=== PATIENT | female | born 1995 | race Caucasian/White ===

== ENCOUNTER 2019-01-13 15:20 | Emergency (ER) | payer BC ==
[2019-01-13 15:56] VITALS: RESP 18
--- NOTE | 2019-01-13 16:21 | ED ---
General Adult HPI - General Chief complaint: Seizure Stated complaint: poss seizure Time Seen by Provider: 01/13/19 16:08 Source: patient Mode of arrival: ambulatory Limitations: no limitations - History of Present Illness Initial comments: Patient is 23-year-old female presents for chief complaint suspected seizure. He does not have a history of seizures. This happened at about noon today. The patient's boyfriend states that he was outside fixing his truck and was called into the house as the patient was somewhat unresponsive. Family witnessed any seizure activity however the patient's boyfriend does describe what is consistent with a postictal state. The patient did bite her tongue, she did not lose bowel or bladder continence. Since the episode, the patient has been feeling normal. The patient states that after about 2 minutes, the patient was walking around acting normal. - Related Data Allergies Allergy/AdvReac Type Severity Reaction Status Date / Time No Known Allergies Allergy Verified 01/13/19 15:56 Review of Systems ROS Statement: Those systems with pertinent positive or pertinent negative responses have been documented in the HPI. ROS Other: All systems not noted in ROS Statement are negative. Neurological: Reports: headache Past Medical History Past Medical History: No Reported History History of Any Multi-Drug Resistant Organisms: None Reported Past Surgical History: No Surgical Hx Reported Past Psychological History: No Psychological Hx Reported Smoking Status: Never smoker Past Alcohol Use History: None Reported Past Drug Use History: None Reported General Exam Limitations: no limitations General appearance: alert, in no apparent distress Head exam: Present: atraumatic, normocephalic Eye exam: Present: normal appearance, PERRL, EOMI. Absent: nystagmus ENT exam: Present: normal exam, mucous membranes moist Neck exam: Present: normal inspection Respiratory exam: Present: normal lung sounds bilaterally. Absent: respiratory distress, wheezes Cardiovascular Exam: Present: regular rate, normal rhythm GI/Abdominal exam: Present: soft. Absent: distended, tenderness Rectal exam: Present: deferred Extremities exam: Present: normal inspection Back exam: Present: normal inspection Neurological exam: Present: alert, oriented X3, CN II-XII intact, normal gait. Absent: motor sensory deficit Psychiatric exam: Present: normal affect, normal mood Skin exam: Present: warm, dry, intact Course Vital Signs 01/13/19 15:52 Temperature 98.7 F Pulse Rate 74 Respiratory 18 Rate Blood Pressure 134/87 O2 Sat by Pulse 99 Oximetry Medical Decision Making - Medical Decision Making Patient presents with a chief complaint of a suspected seizure. On initial evaluation, vital signs are stable, patient is in no acute distress. She is daily awake and alert, neurovascularly intact. Able to ambulate without assistance, Romberg negative. Patient to be evaluated with basic labs including urinalysis, UDS, serum test, and computed tomography scan of the head without contrast. 5:51 PM Lab Evaluation this patient is unremarkable. HCG is negative. Computed tomogr aphy scan of the head shows no acute intracranial hemorrhage, mass effect or midline shift. I reviewed the results with the patient and her family, this time she is to her discharge. The patient will be referred to primary care and neurology, instructed to follow-up in 1-2 days, return to ED if symptoms worsen or change. - Lab Data Result diagrams: 01/13/19 16:30 01/13/19 16:30 Lab Results 01/13/19 01/13/19 01/13/19 Range/Units 16:30 16:30 16:30 WBC 9.4 (3.8-10.6) k/uL RBC 4.98 (3.80-5.40) m/uL Hgb 13.6 (11.4-16.0) gm/dL Hct 42.0 (34.0-46.0) % MCV 84.4 (80.0-100.0) fL MCH 27.3 (25.0-35.0) pg MCHC 32.4 (31.0-37.0) g/dL RDW 12.6 (11.5-15.5) % Plt Count 354 (150-450) k/uL Neutrophils % 67 % Lymphocytes % 24 % Monocytes % 5 % Eosinophils % 1 % Basophils % 0 % Neutrophils # 6.3 (1.3-7.7) k/uL Lymphocytes # 2.3 (1.0-4.8) k/uL Monocytes # 0.5 (0-1.0) k/uL Eosinophils # 0.1 (0-0.7) k/uL Basophils # 0.0 (0-0.2) k/uL Sodium 140 (137-145) mmol/L Potassium 4.1 (3.5-5.1) mmol/L Chloride 108 H (98-107) mmol/L Carbon Dioxide 25 (22-30) mmol/L Anion Gap 7 mmol/L BUN 13 (7-17) mg/dL Creatinine 0.53 (0.52-1.04) mg/dL Est GFR (CKD-EPI)AfAm >90 (>60 ml/min/1.73 sqM) Est GFR (CKD-EPI)NonAf >90 (>60 ml/min/1.73 sqM) Glucose 98 (74-99) mg/dL Plasma Lactic Acid Raymond 0.9 (0.7-2.0) mmol/L Calcium 9.6 (8.4-10.2) mg/dL HCG, Qual Not Detected Urine Color Urine Appearance (Clear) Urine pH (5.0-8.0) Ur Specific [place] (1.001-1.035) Urine Protein (Negative) Urine Glucose (UA) (Negative) Urine Ketones (Negative) Urine Blood (Negative) Urine Nitrite (Negative) Urine Bilirubin (Negative) Urine Urobilinogen (<2.0) mg/dL Ur Leukocyte Esterase (Negative) Urine RBC (0-5) /hpf Urine WBC (0-5) /hpf Ur Squamous Epith Cells (0-4) /hpf Urine Bacteria (None) /hpf Urine Mucus (None) /hpf Urine Opiates Screen (NotDetected) Ur Oxycodone Screen (NotDetected) Urine Methadone Screen (NotDetected) Ur Propoxyphene Screen (NotDetected) Ur Barbiturates Screen (NotDetected) U Tricyclic Antidepress (NotDetected) Ur Phencyclidine Scrn (NotDetected) Ur Amphetamines Screen (NotDetected) U Methamphetamines Scrn (NotDetected) U Benzodiazepines Scrn (NotDetected) Urine Cocaine Screen (NotDetected) U Marijuana (THC) Screen (NotDetected) 01/13/19 Range/Units 17:20 WBC (3.8-10.6) k/uL RBC (3.80-5.40) m/uL Hgb (11.4-16.0) gm/dL Hct (34.0-46.0) % MCV (80.0-100.0) fL MCH (25.0-35.0) pg MCHC (31.0-37.0) g/dL RDW (11.5-15.5) % Plt Count (150-450) k/uL Neutrophils % % Lymphocytes % % Monocytes % % Eosinophils % % Basophils % % Neutrophils # (1.3-7.7) k/uL Lymphocytes # (1.0-4.8) k/uL Monocytes # (0-1.0) k/uL Eosinophils # (0-0.7) k/uL Basophils # (0-0.2) k/uL Sodium (137-145) mmol/L Potassium (3.5-5.1) mmol/L Chloride (98-107) mmol/L Carbon Dioxide (22-30) mmol/L Anion Gap mmol/L BUN (7-17) mg/dL Creatinine (0.52-1.04) mg/dL Est GFR (CKD-EPI)AfAm (>60 ml/min/1.73 sqM) Est GFR (CKD-EPI)NonAf (>60 ml/min/1.73 sqM) Glucose (74-99) mg/dL Plasma Lactic Acid Raymond (0.7-2.0) mmol/L Calcium (8.4-10.2) mg/dL HCG, Qual Urine Color Yellow Urine Appearance Clear (Clear) Urine pH 6.5 (5.0-8.0) Ur Specific [place] 1.015 (1.001-1.035) Urine Protein Negative (Negative) Urine Glucose (UA) Negative (Negative) Urine Ketones Negative (Negative) Urine Blood Small H (Negative) Urine Nitrite Negative (Negative) Urine Bilirubin Negative (Negative) Urine Urobilinogen <2.0 (<2.0) mg/dL Ur Leukocyte Esterase Negative (Negative) Urine RBC 3 (0-5) /hpf Urine WBC 2 (0-5) /hpf Ur Squamous Epith Cells 3 (0-4) /hpf Urine Bacteria Rare H (None) /hpf Urine Mucus Rare H (None) /hpf Urine Opiates Screen Not Detected (NotDetected) Ur Oxycodone Screen Not Detected (NotDetected) Urine Methadone Screen Not Detected (NotDetected) Ur Propoxyphene Screen Not Detected (NotDetected) Ur Barbiturates Screen Not Detected (NotDetected) U Tricyclic Antidepress Not Detected (NotDetected) Ur Phencyclidine Scrn Not Detected (NotDetected) Ur Amphetamines Screen Not Detected (NotDetected) U Methamphetamines Scrn Not Detected (NotDetected) U Benzodiazepines Scrn Not Detected (NotDetected) Urine Cocaine Screen Not Detected (NotDetected) U Marijuana (THC) Screen Not Detected (NotDetected) Disposition Clinical Impression: Transient alteration of awareness Disposition: HOME SELF-CARE Condition: Good Instructions (If sedation given, give patient instructions): New-Onset Seizure in Adults (ED) Is patient prescribed a controlled substance at d/c from ED?: No Referrals: None,Stated [Primary Care Provider] - 1-2 days Abida Sage MD [STAFF PHYSICIAN] - 1-2 days Jean-Claude Pace MD [Medical Doctor] - 1-2 days Laura Fong MD [STAFF PHYSICIAN] - 1-2 days
[2019-01-13 16:54] LABS: Basophils % (A) 0 %; Eosinophils # (A) 0.1 k/uL (0-0.7); Eosinophils % (A) 1 %; HGB 13.6 gm/dL (11.4-16.0); Lymphocytes # (A) 2.3 k/uL (1.0-4.8); Lymphocytes % (A) 24 %; MCH 27.3 pg (25.0-35.0); MCHC 32.4 g/dL (31.0-37.0); MCV 84.4 fL (80.0-100.0); Mean Platelet Volume 6.6; Monocytes # (A) 0.5 k/uL (0-1.0); Monocytes % (A) 5 %; Neutrophils # (A) 6.3 k/uL (1.3-7.7); Neutrophils % (A) 67 %; Platelet Count 354 k/uL (150-450); RBC 4.98 m/uL (3.80-5.40); RDW 12.6 % (11.5-15.5); WBC 9.4 k/uL (3.8-10.6)
[2019-01-13 17:02] LABS: HCG,Qualitative Serum Not Detected
[2019-01-13 17:09] LABS: Anion Gap 7 mmol/L; Blood Urea Nitrogen 13 mg/dL (7-17); Calcium 9.6 mg/dL (8.4-10.2); Carbon Dioxide 25 mmol/L (22-30); Chloride 108 mmol/L (98-107); Glucose 98 mg/dL (74-99); Potassium 4.1 mmol/L (3.5-5.1); Sodium 140 mmol/L (137-145)
--- NOTE | 2019-01-13 17:09 | CT ---
EXAMINATION TYPE: CT brain wo con DATE OF EXAM: 01/13/2019 COMPARISON: None. HISTORY: 23-year-old female with seizure CT DLP: 1099.4 mGycm. Automated Exposure Control for Dose Reduction was Utilized. TECHNIQUE: CT scan of the head is performed without contrast. FINDINGS: There is no acute intracranial hemorrhage, mass effect, or midline shift identified. The ventricles and sulci are within normal limits in size. The globes are intact and the visualized sin uses are clear. IMPRESSION: No acute intracranial hemorrhage, mass effect, or midline shift is seen.
[2019-01-13 17:36] LABS: Appearance,Urine Clear (Clear); Bacteria,Urine Rare /hpf; Bilirubin,Urine Negative (Negative); Blood,Urine Small (Negative); Color,Urine Yellow; Glucose,Urine (UA) Negative (Negative); Ketones,Urine Negative (Negative); Leukocyte Esterase,Urine Negative (Negative); Mucus,Urine Rare /hpf; Nitrite,Urine Negative (Negative); PH, Urine 6.5 (5.0-8.0); Protein,Urine Negative (Negative); RBC,Urine 3 /hpf (0-5); Specific Gravity,Urine 1.015 (1.001-1.035); Squamous Epithelial Cell,Urine 3 /hpf (0-4); Urobilinogen,Urine <2.0 mg/dL (<2.0); WBC,Urine 2 /hpf (0-5)
[2019-01-13 17:43] LABS: Amphetamine Screen,Urine Not Detected (NotDetected); Barbiturate Screen,Urine Not Detected (NotDetected); Benzodiazepines Screen,Urine Not Detected (NotDetected); Cocaine Screen,Urine Not Detected (NotDetected); Methadone Screen, Urine Not Detected (NotDetected); Opiate Screen,Urine Not Detected (NotDetected); Oxycodone Screen, Urine Not Detected (NotDetected); Phencyclidine Screen,Urine Not Detected (NotDetected); Tricyclic Antidepressant,Urine Not Detected (NotDetected); Urn Cannabinoid Scrn Not Detected (NotDetected)
[2019-01-13 18:16] VITALS: BP 124/87; PULSE 66; TEMP 98.1
== END 2019-01-13 18:16 | disposition home or self-care (01) ==
LOC: EC 15:20
DX: R40.4 Transient alteration of awareness (principal)
CPT/HCPCS: 36415; 70450; 80048; 80306; 81001; 83605; 84703; 85025; 99285

== ENCOUNTER 2024-09-18 06:03 | Inpatient (IN) | payer BC, OTHER ==
[2024-09-18] MEDS ORDERED: OXYTOCIN 10 UNIT/ML 1 ML VIAL IM PRN (06:20)
[2024-09-18] MEDS ORDERED: TRANEXAMIC 1,000 MG/100ML-NACL 1,000 MG in EMPTY BAG 1 BAG IV PRN (06:20)
[2024-09-18] MEDS ORDERED: METHYLERGONOVINE 0.2 MG/ML 1 ML AMP IM PRN (06:20)
[2024-09-18] MEDS ORDERED: LIDOCAINE 0.5% (PF) 5 MG/ML (50 ML SDV) SQ PRN (06:20)
[2024-09-18] MEDS ORDERED: miSOPROStoL 200 MCG TAB RECTAL PRN (06:20)
[2024-09-18] MEDS ORDERED: CARBOPROST TROMETHAMINE 250 MCG/ML 1 ML AMP IM PRN (06:20)
[2024-09-18] MEDS ORDERED: miSOPROStoL 200 MCG TAB PO PRN (06:20)
[2024-09-18] MEDS ORDERED: TERBUTALINE 1 MG/ML VIAL SQ PRN (06:20)
[2024-09-18 06:25] LABS: Glucose,Whole Blood 113 mg/dL (70-110)
[2024-09-18] MEDS: LACTATED RINGERS 1,000 ML BAG IV STA (06:35)
[2024-09-18] MEDS: OXYTOCIN 30 UNITS/500 ML NS 30 UNIT in SALINE 1 500ML.BAG IV SCH (06:58)
[2024-09-18 07:09] LABS: Basophils % (A) 0 %; Eosinophils # (A) 0.1 k/uL (0-0.7); Eosinophils % (A) 1 %; HCT 40.3 % (34.0-46.0); HGB 13.7 gm/dL (11.4-16.0); Lymphocytes # (A) 2.5 k/uL (1.0-4.8); Lymphocytes % (A) 24 %; MCH 29.8 pg (25.0-35.0); MCHC 34.1 g/dL (31.0-37.0); MCV 87.3 fL (80.0-100.0); Mean Platelet Volume 7.8; Monocytes # (A) 0.7 k/uL (0-1.0); Monocytes % (A) 7 %; Neutrophils # (A) 7.1 k/uL (1.3-7.7); Neutrophils % (A) 67 %; Platelet Count 251 k/uL (150-450); RBC 4.62 m/uL (3.80-5.40); RDW 12.8 % (11.5-15.5); WBC 10.5 k/uL (3.8-10.6)
--- NOTE | 2024-09-18 08:49 | P.HPOB ---
History of Present Illness H&P Date: 09/18/24 Chief Complaint: 39+ weeks, induction Patient is a 29-year-old 1 para 0 admitted at 39+ weeks as established by 6-week ultrasound. She is admitted for induction of labor secondary to gestational diabetes with a favorable cervix. She was somewhat late to care and was found to have gestational diabetes in the second trimester. Blood sugars were reportedly normal throughout the and she had reassuring testing on a weekly basis after 32 weeks. On labor delivery, all signs are reassuring with a category 1 heart rate tracing with intermittent flat heart tones, category 2, which resolve. Group B strep status is negative. Obstetrical history: 1 para 0 with current statistics listed in history of present illness. EDC of 09/22/2024 was established by 6-week ultrasound. Laboratory workup demonstrates a blood type of O+ with a negative antibody screen. Rubella status is nonimmune. The remainder of the laboratory workup was within normal limits. Early Glucola was elevated and a followed by an abnormal 3-hour glucose tolerance test making the diagnosis of gestational diabetes. Group B strep status is negative. Gynecologic history: Unremarkable with no history of any infections to include STDs. Review of Systems Review of systems is confined to history of present illness. Past Medical History Past Medical History: No Reported History History of Any Multi-Drug Resistant Organisms: None Reported Past Surgical History: No Surgical Hx Reported Additional Past Surgical History / Comment(s): Benign brain tumor removal 2019 Past Anesthesia/Blood Transfusion Reactions: No Reported Reaction Past Psychological History: No Psychological Hx Reported Smoking Status: Never smoker Past Alcohol Use History: None Reported Past Drug Use History: None Reported Medications and Allergies Allergies Allergy/AdvReac Type Severity Reaction Status Date / Time acetaminophen [From [place]] AdvReac Nausea & Verified 09/18/24 06:20 Vomiting hydrocodone [From [place]] AdvReac Nausea & Verified 09/18/24 06:20 Vomiting Exam Intake and Output 09/17/24 09/18/24 09/18/24 22:59 06:59 14:59 Other: Weight 141.067 kg General, this is a well-developed, morbidly obese white female in no acute distress. Her heart has a regular rhythm and rate without murmur. Her lungs are clear to auscultation bilateral in all cortes. Her abdomen is obese, gravid, nondistended, has normal active bowel sounds, soft, nontender, and without any palpable masses aside from the uterine fundus. Her extremities are without any cyanosis, clubbing, or edema and are nontender to palpation bilaterally. Digital cervical examination demonstrates her cervix to be 2 cm dilated, 70% effaced, the vertex and presentation at -2 station. Artificial rupture of membranes is carried out demonstrating clear fluid and a scalp electrode is applied for more consistent monitoring. Results Result Diagrams: 09/18/24 06:30 Abnormal Lab Results - Last 24 Hours (Table) 09/18/24 Range/Units 06:24 POC Glucose (mg/dL) 113 H (70-110) mg/dL Assessment and Plan (1) Gestational diabetes Current Visit: Yes Status: Acute Code(s): O24.419 - GESTATIONAL DIABETES MELLITUS IN , UNSP CONTROL SNOMED Code(s): 14486236 (2) Term Current Visit: Yes Status: Acute Code(s): Z34.90 - ENCNTR FOR SUPRVSN OF NORMAL , UNSP, UNSP TRIMESTER SNOMED Code(s): 84476900 Plan: Has been admitted for Pitocin induction which has been started. She has undergone artificial rupture of membranes. She will have close maternal and surveillance and expectant management will be practiced. She is a good candidate for either IV or epidural analgesia, which ever she may choose.
[2024-09-18 09:50] LABS: Creatinine,Urine Random 123.5 mg/dL; Protein/Creatinine Ratio,Urine 0.138
[2024-09-18 10:02] LABS: ALT 15 U/L (4-34); AST 20 U/L (14-36); African American GFR (CKD) >90 (>60 ml/min/1.73 sqM); Blood Urea Nitrogen 9 mg/dL (7-17); LDH 205 U/L (120-246); Non-African American GFR(CKD) >90 (>60 ml/min/1.73 sqM); Uric Acid 5.2 mg/dL (3.7-7.4)
[2024-09-18] MEDS: LACTATED RINGERS 500 ML IV SCH (10:40)
[2024-09-18] MEDS: BUTORPHANOL 1 MG/ML 1 ML VIAL IV PRN (12:17)
[2024-09-18] MEDS ORDERED: SODIUM CHLORIDE 0.9% 250 ML BAG ONE (15:35)
[2024-09-18] MEDS ORDERED: fentaNYL (PF) 50 MCG/ML 5 ML AMP ONE (15:35)
[2024-09-18] MEDS ORDERED: ROPIVACAINE 5 MG/ML 30 ML VIAL ONE (15:35)
[2024-09-18] MEDS: ceFAZolin 3 GM in SODIUM CHLORIDE 0.9% 100 ML IVPB ONE (22:24)
[2024-09-18] MEDS: CITRIC ACID-SODIUM CITRATE 15 ML CUP PO ONE (22:25)
[2024-09-18] MEDS ORDERED: GLYCOPYRROLATE 0.2 MG/ML 2 ML VIAL ONE (22:40)
[2024-09-18] MEDS ORDERED: MORPHINE SULFATE (PF) 0.3 MG/0.3 ML SYR ONE (22:40)
[2024-09-18] MEDS ORDERED: ONDANSETRON 4 MG/2 ML VIAL ONE (22:40)
[2024-09-18] MEDS ORDERED: KETOROLAC 15 MG/ML 1 ML VIAL ONE (22:40)
[2024-09-18] MEDS ORDERED: fentaNYL (PF) 50 MCG/ML 2 ML AMP ONE (22:40)
[2024-09-18] MEDS ORDERED: PROPOFOL 10 MG/ML 20 ML VIAL IV ONE (22:40)
[2024-09-18] MEDS ORDERED: NEOSTIGMINE 1 MG/ML 10 ML VIAL ONE (22:40)
[2024-09-18] MEDS ORDERED: WATER FOR INJECTION, STERILE 10 ML VIAL IV ONE (22:40)
[2024-09-18] MEDS ORDERED: LIDOCAINE 2%-EPI 1:100,000 20 ML VIAL ONE (22:40)
[2024-09-18] MEDS ORDERED: SUCCINYLCHOLINE CHLORIDE 200 MG/10 ML VIAL IV ONE (22:40)
[2024-09-18] MEDS ORDERED: OXYTOCIN 30 UNITS/500 ML NS BAG IV ONE (22:40)
[2024-09-18] MEDS ORDERED: OXYTOCIN 30 UNITS/500 ML NS 30 UNIT in SALINE 1 500ML.BAG IV SCH (23:45)
[2024-09-18] MEDS ORDERED: diphenhydrAMINE 25 MG CAP PO PRN (23:46)
[2024-09-18] MEDS ORDERED: SIMETHICONE 80 MG CHEWABLE PO PRN (23:46)
[2024-09-18] MEDS ORDERED: LANOLIN CREAM 1 GM TUBE TOPICAL PRN (23:46)
[2024-09-18] MEDS ORDERED: diphenhydrAMINE 50 MG CAP PO PRN (23:46)
[2024-09-18] MEDS ORDERED: ZOLPIDEM 5 MG TAB PO PRN (23:46)
[2024-09-18] MEDS ORDERED: ONDANSETRON 4 MG/2 ML VIAL IVP PRN (23:46)
[2024-09-18] MEDS ORDERED: diphenhydrAMINE 50 MG/ML 1 ML VIAL IVP PRN ×2 (23:46)
[2024-09-18] MEDS ORDERED: METOCLOPRAMIDE 5 MG/ML 2 ML VIAL IVP PRN (23:46)
[2024-09-18] MEDS ORDERED: NALOXONE 0.4 MG/ML 1 ML VIAL IV PRN (23:46)
--- NOTE | 2024-09-18 23:54 | P.OP ---
Date of Procedure: 09/18/24 Preoperative Diagnosis: #1. 39 and 1 sevenths weeks, induction #2. Gestational diabetes #3. Arrest of dilation and descent Postoperative Diagnosis: Same Procedure(s) Performed: #1. Primary low-transverse section Anesthesia: GETA, epidural (Failed) Surgeon: Doug Hendricks Religion Teacher #1: Celeste Vidales Estimated Blood Loss (ml): 900 IV fluids (ml): 1,000 Urine output (ml): 500 Pathology: none sent Condition: stable Disposition: floor Operative Findings: Preoperatively and while in labor, the patient had reached dilation of 6 cm without a percent effacement and continued to have an adequate contraction pattern with Pitocin augmentation. She remained at the same dilation for greater than 6 hours with no change in either dilation or descent making the diagnosis of arrest of dilation and descent. She was counseled regarding options and agreed to proceed to the operating room. She was taken to the operating room where she was delivered of a viable 9 pound 5 ounce baby girl with Apgars of 9 at 1 minute and 9 at 5 minutes in the occiput transverse position with asynclitism noted. The placenta was delivered manually, intact, and grossly normal with a grossly normal three-vessel cord. The uterus, tubes, and ovaries were entirely normal to inspection though the ovaries were consistent with a diagnosis of polycystic ovarian syndrome. Description of Procedure: The patient was prepped and draped in usual fashion after epidural anesthesia was bolused by the anesthesiologist. Repeated attempts to ascertain and adequate level of anesthesia failed and the decision was made to proceed with general endotracheal anesthesia. After placing the endotracheal T-tube and initiating general anesthesia, a Pfannenstiel incision was made and extended into the abdominal cavity without difficulty. The bladder peritoneum was significantly distal to the intended site of incision was left intact. A 2 cm incision was made in the transverse plane of the lower uterine segment to enter the uterus at which time clear to lightly meconium stained fluid was present. The incision was extended both directions using the bandage scissors. The head was delivered up and through the incision and the remainder of the delivered onto the field where the cord was immediately clamped, cut, and the infant passed for resuscitative measures with weight and Apgars as noted above. A segment of cord was doubly clamped, cut, and set aside should cord gases become necessary. The placenta was delivered manually and intact as noted above. The uterus was exteriorized and the anterior cavity of the uterus swept many remaining placental or membranous fragments. The margins of the uterine incision were grasped with López clamps and the incision closed in 2 layers. The first layer was a running locking stitch of 0 chromic catgut followed by a running imbricating stitch of 0 chromic catgut, both from margin to margin. The posterior cul-de-sac was suctioned using a guard and then followed by a laparotomy sponge. The uterine and ovarian findings are were normal as noted above. The uterus was replaced within the abdominal cavity and the incision reexamined. There was a point of bleeding at the left angle which was made hemostatic with a single tlavvm-el-vybhm stitch of 0 chromic catgut. After ensuring hemostasis within the abdomen, the parietal peritoneum was loosely reapproximated and the layer of muscles examined and found to be hemostatic. The fascia was closed with 2 running stitches of 0 Vicryl proceeding from the lateral margins to the midpoint. The subcutaneous tissues were examined and made hemostatic with the Bovie. They were then closed with a running stitch of 3-0 plain catgut. The skin was reapproximated with a running subcuticular stitch of 4-0 Vicryl followed by half-inch Steri-Strips placed with Mastisol. Estimated blood loss for the case was approximately 900 mL. There were no complications. All sponge, instrument, and needle counts were correct. The patient tolerated the procedure well and proceeded to the recovery room in stable condition. Both mother and are resting comfortably in recovery.
[2024-09-19] MEDS: ACETAMINOPHEN TAB 500 MG TAB PO SCH (04:02)
[2024-09-19 06:29] LABS: Basophils % (A) 0 %; Eosinophils % (A) 0 %; HCT 31.5 % (34.0-46.0); HGB 10.8 gm/dL (11.4-16.0); Lymphocytes # (A) 1.9 k/uL (1.0-4.8); Lymphocytes % (A) 15 %; MCHC 34.2 g/dL (31.0-37.0); MCV 87.7 fL (80.0-100.0); Mean Platelet Volume 7.5; Monocytes # (A) 0.9 k/uL (0-1.0); Monocytes % (A) 7 %; Neutrophils # (A) 9.7 k/uL (1.3-7.7); Neutrophils % (A) 76 %; Platelet Count 207 k/uL (150-450); RBC 3.59 m/uL (3.80-5.40); RDW 12.8 % (11.5-15.5); WBC 12.7 k/uL (3.8-10.6)
[2024-09-19] MEDS: SENNOSIDES-DOCUSATE SODIUM 1 EACH TAB PO SCH (07:51)
[2024-09-19] MEDS: KETOROLAC 15 MG/ML 1 ML VIAL IVP PRN (07:51)
--- NOTE | 2024-09-19 11:01 | P.PNOBGPC ---
Subjective - Subjective Patient reports: Reports appetite normal, Reports voiding normally, Reports pain well controlled, Reports ambulating normally Godfrey: doing well Objective - Vital Signs Latest vital signs: Vital Signs Temp Pulse Resp BP Pulse Ox 09/19/24 08:00 97.9 F 80 18 142/85 09/19/24 04:00 98.4 F 74 16 122/81 97 09/19/24 01:48 98.4 F 65 16 141/73 100 09/19/24 01:33 67 16 136/77 99 09/19/24 01:18 72 16 136/74 97 09/19/24 01:03 65 16 141/70 98 09/19/24 00:48 79 16 149/75 98 09/19/24 00:33 65 16 139/77 96 09/19/24 00:18 77 16 151/81 99 09/19/24 00:03 61 16 153/80 100 09/18/24 23:48 98.5 F 65 16 156/83 100 Intake and Output 09/18/24 09/19/24 09/19/24 22:59 06:59 14:59 Intake Total 600 634.1 Output Total 2970 600 Balance 600 -2335.9 -600 Intake: Intake, IV Titration 34.1 Amount Oxytocin 30 Units/500 ml 34.1 Ns 30 unit In Saline 1 500ml.bag @ Per Protocol IV .Q0M [facility] Rx#:[id number] Oral 600 600 Output: Urine 600 600 Uretheral (Bender) 600 Output, Estimated Blood 900 Loss Amount Output, Quantitative 1470 Blood Loss Other: Voiding Method Indwelling Catheter - Exam Extremities: Present: normal Abdomen: Present: normal appearance, soft. Absent: distention, tenderness Incision: Present: normal, dry, intact Uterus: Present: normal, firm (Uterine fundus is tonic and appropriately tender below the umbilicus.) - Labs Labs: Abnormal Lab Results - Last 24 Hours (Table) 09/19/24 Range/Units 06:07 WBC 12.7 H (3.8-10.6) k/uL RBC 3.59 L (3.80-5.40) m/uL Hgb 10.8 L (11.4-16.0) gm/dL Hct 31.5 L (34.0-46.0) % Neutrophils # 9.7 H (1.3-7.7) k/uL Assessment and Plan (1) Gestational diabetes Current Visit: Yes Status: Acute Code(s): O24.419 - GESTATIONAL DIABETES MELLITUS IN , UNSP CONTROL SNOMED Code(s): 37898822 (2) Term Current Visit: Yes Status: Acute Code(s): Z34.90 - ENCNTR FOR SUPRVSN OF NORMAL , UNSP, UNSP TRIMESTER SNOMED Code(s): 83186527 (3) S/P section Current Visit: Yes Status: Acute Code(s): Z98.891 - HISTORY OF UTERINE SCAR FROM PREVIOUS SURGERY SNOMED Code(s): 923654674 Plan: Continue routine and postoperative care. I have encouraged the patient ambulate in the hallways routinely. I would anticipate discharge home tomorrow pending no complications.
--- NOTE | 2024-09-19 11:26 | P.PN ---
Progress Note - Text Progress Note Date: 09/19/24 (0646) Anesthesia Postop day 1 Subjective: Status Post section with Duramorph. Patient seen and examined. Doing well without complaint. VAS 2 out of 10. No nausea vomiting or pruritus. Denies fever. Gross lower extremity strength intact. Without apparent anesthetic complications. Objective: Vital signs reviewed Heart: Regular Rate Lungs: Good chest excursion Abdomen: Appears nondistended Assessment: Status post section with Duramorph postop day 1 Plan: 1. Continue current care with your medical management. Anticipated end to the duration of the Duramorph around surgery time today. You may see increased pain needs around this time. 2. This note was dictated using [employer] software. Please be advised there is a potential for misspellings or errors in mend worker.
[2024-09-19] MEDS: IBUPROFEN 800 MG TAB PO SCH (16:22)
[2024-09-19 20:38] VITALS: RESP 16
[2024-09-20] MEDS: MEASLES-MUMPS-RUBELLA VACC/PF 12,500 UNIT/0.5 ML VIAL SQ ONE (05:31)
--- NOTE | 2024-09-20 09:25 | P.DS ---
Providers Date of admission: 09/18/24 06:03 Expected date of discharge: 09/20/24 Attending physician: Doug Hendricks Primary care physician: Evy Apple - Discharge Diagnosis(es) (1) Gestational diabetes Current Visit: Yes Status: Acute (2) Term Current Visit: Yes Status: Acute (3) S/P section Current Visit: Yes Status: Acute Hospital Course: The patient is a 29-year-old 1 para 0 admitted at 39+ weeks by good dating parameters. She is admitted for induction of labor secondary to gestational diabetes with a favorable cervix. She was somewhat late with to care and did develop gestational diabetes during and had reassuring testing weekly thereafter. On labor delivery, all signs were reassuring with a category 1 heart rate tracing. She had Pitocin started followed by artificial rupture of membranes for clear fluid. She made progress into the active phase of labor and had an epidural catheter placed for analgesia. She made progress ultimately to about 6 cm of dilation and remained there for more than 6 hours with adequate contractions. She was counseled and taken to the operating room where she underwent a primary low-transverse section without complications and delivered a viable 9 pound 5 ounce baby girl with Apgars of 9 at 1 minute and 9 at 5 minutes. Her and postoperative care was unremarkable with vital signs remaining stable and her temperature was afebrile throughout. She was deemed stable for discharge on and postoperative day #2. She was discharged home to follow-up in the office in 2 weeks for an incision check in 6 weeks routinely. Discharge instructions included calling for any significantly increased bleeding or foul- smelling lochia, significantly increased fever abdominal pain, perineal complaints, breast complaints, incisional complaints, or anything else that concerned her. She was additionally instructed to have nothing in the vagina for at least 6 weeks time to include intercourse and to abstain from any heavy lifting over the same period of time. She was lastly instructed to do no driving until off of all pain medications or 2 weeks time, whichever came first. She understood her instructions and agrees to follow-up as noted above. Discharge medications included continued vitamins as she is attempting to breast-feed. She was additionally to use [id number] analgesic pain medications as needed. She was provided a prescription fo oxycodone 5 mg, 1-2 p.o. every 6 hours as needed pain, #20 dispensed with no refills. Maternal blood type is A- and cord blood was sent for the evaluation of RhoGAM prior to discharge. Rubella status is nonimmune. She was to receive the MMR vaccination prior to discharge. Discharge hemoglobin and hematocrit were 10.8 and 31.5 respectively. Procedures: 3 Pitocin induction #2. Artificial rupture of membranes #3. Epidural analgesia #4. Primary low-transverse section Patient Condition at Discharge: Stable Plan - Discharge Summary Follow up Appointment(s)/Referral(s): Doug Hendricks MD [STAFF PHYSICIAN] - 10/29/24 11:15 am Discharge Disposition: HOME SELF-CARE
[2024-09-20 16:51] VITALS: BP 130/84; PULSE 78; TEMP 98.2
== END 2024-09-20 18:00 | disposition home or self-care (01) | DRG 788 ==
LOC: 4FBP 06:03
PROVIDERS: ADMIT Obstetrics & Gynecology; ATTEND Obstetrics & Gynecology
PROC: 3E033VJ Introduction of Other Hormone into Peripheral Vein, Percutaneous Approach (ICD-10-PCS; 2024-09-18)
PROC: 10907ZC Drainage of Amniotic Fluid, Therapeutic from Products of Conception, Via Natural or Artificial Opening (ICD-10-PCS; 2024-09-18)
PROC: 10D00Z1 Extraction of Products of Conception, Low, Open Approach (ICD-10-PCS; principal; 2024-09-18 23:00)
PROC: 3E0234Z Introduction of Serum, Toxoid and Vaccine into Muscle, Percutaneous Approach (ICD-10-PCS; 2024-09-20)
DX: O24.429 Gestational diabetes mellitus in childbirth, unspecified control (principal); E28.2 Polycystic ovarian syndrome; O32.8XX0 Maternal care for other malpresentation of fetus, not applicable or unspecified; O62.1 Secondary uterine inertia; O77.0 Labor and delivery complicated by meconium in amniotic fluid; Z37.0 Single live birth; Z86.011 Personal history of benign neoplasm of the brain; Z3A.39 39 weeks gestation of pregnancy; Z23 Encounter for immunization
CPT/HCPCS: 82565; 82570; 83615; 84156; 84450; 84460; 84520; 84550; 85025; 86850; 86900; 86901; 90707